=== PATIENT | male | born 1945 | race Caucasian/White ===

== ENCOUNTER 2017-01-16 08:00 | Outpatient (CLI) | payer MEDICARE, OTHER | END 2017-01-16 08:01 | disposition home or self-care (01) | DX: G47.33 Obstructive sleep apnea (adult) (pediatric) (principal); C61 Malignant neoplasm of prostate; I25.10 Atherosclerotic heart disease of native coronary artery without angina pectoris; R74.8 Abnormal levels of other serum enzymes; E78.5 Hyperlipidemia, unspecified; C80.1 Malignant (primary) neoplasm, unspecified; R25.2 Cramp and spasm; Z79.899 Other long term (current) drug therapy ==

== ENCOUNTER 2017-08-24 08:18 | Outpatient (CLI) | payer MEDICARE, OTHER ==
[2017-08-24 09:19] LABS: PSA FREE 0.089 ng/mL (0.16-2.81)
[2017-08-24 09:20] LABS: PSA TOTAL 0.725 ng/mL (0.000-2.000)
== END 2017-08-24 08:19 | disposition home or self-care (01) ==
LOC: LAB 08:18
PROVIDERS: ATTEND Radiology Therapeutic Radiology
DX: C61 Malignant neoplasm of prostate (principal)
CPT/HCPCS: 36415; 84154

== ENCOUNTER 2018-06-02 08:12 | Outpatient (CLI) | payer MEDICARE, OTHER ==
[2018-06-02 08:27] LABS: BASOPHILS % (AUTO) 0.8 %; EOSINOPHILS # (AUTO) 0.2 10^3/uL (0.0-0.7); EOSINOPHILS % (AUTO) 2.8 %; HGB - HEMOGLOBIN 14.7 g/dL (14.0-18.0); LYMPHOCYTES # (AUTO) 1.2 10^3/uL (1.5-3.5); LYMPHOCYTES % (AUTO) 21.3 %; MEAN CORPUSCULAR HEMOGLOBIN 30.4 pg (27.0-31.0); MEAN CORPUSCULAR HGB CONC 34.4 g/dL (32.0-36.0); MEAN CORPUSCULAR VOLUME 88.3 fL (80.0-94.0); MEAN PLATELET VOLUME 8.5 fL (7.4-11.4); MONOCYTES # (AUTO) 0.5 10^3/uL (0.0-1.0); MONOCYTES % (AUTO) 8.6 %; NEUTROPHILS # (AUTO) 3.8 10^3/uL (1.5-6.6); NEUTROPHILS % (AUTO) 66.5 %; PLT - PLATELET COUNT 132 10^3/uL (130-450); RED BLOOD COUNT 4.84 10^6/uL (4.70-6.10); RED CELL DISTRIBUTION WIDTH 13.3 % (12.0-15.0); WHITE BLOOD COUNT 5.7 x10^3/uL (4.8-10.8)
[2018-06-02 08:31] LABS: BILIRUBIN,URINE NEGATIVE (NEGATIVE); GLUCOSE, URINE (UA) NEGATIVE (NEGATIVE); KETONES,URINE (UA) NEGATIVE (NEGATIVE); LEUKOCYTE ESTERASE, URINE NEGATIVE (NEGATIVE); NITRITE,URINE NEGATIVE (NEGATIVE); OCCULT BLOOD,URINE NEGATIVE (NEGATIVE); PROTEIN,URINE 30 mg/dL (NEGATIVE); UROBILINOGEN,URINE 0.2 (NORMAL) E.U./dL (NORMAL)
[2018-06-02 08:43] LABS: MICROALBUM/CREATININE RATIO,UR 253.1 ug/mg (<30.0); MICROALBUMIN,URINE 32.4 mg/dL (0-300.0)
[2018-06-02 08:45] LABS: ALBUMIN 4.6 g/dL (3.2-5.5); ALBUMIN/GLOBULIN RATIO 1.9 (1.0-2.2); ALKALINE PHOSPHATASE 74 IU/L (42-121); ALT ALANINE AMINOTRANSFERASE 74 IU/L (10-60); AST ASPARTATE AMINOTRANSFERASE 57 IU/L (10-42); BUN - BLOOD UREA NITROGEN 16 mg/dL (6-20); CALCIUM 9.2 mg/dL (8.5-10.3); CARBON DIOXIDE - CO2 28 mmol/L (21-32); CHLORIDE 98 mmol/L (101-111); CHOLESTEROL 155 mg/dL; CREATININE 0.8 mg/dL (0.6-1.2); GFR - MDRD 95 (>89); GLUCOSE 182 mg/dL (70-100); HDL CHOLESTEROL 31 mg/dL; LDL CHOLESTEROL,CALCULATED 76 mg/dL; LDL/HDL RATIO 2.5 (<3.6); SODIUM 133 mmol/L (135-145); VLDL CHOLESTEROL 48 mg/dL
[2018-06-02 08:46] LABS: HB2 TOTAL 15.9 g/dL; HEMOGLOBIN A1C 1.02 g/dL
[2018-06-02 09:09] LABS: CLARITY,URINE CLEAR (CLEAR); RBC,URINE 0-5 /HPF (0-5)
[2018-06-02 09:10] LABS: BACTERIA,URINE None Seen /HPF (None Seen); CASTS, URINE 0-2 Hyaline Casts /LPF; SQUAMOUS EPITHELIAL CELL,UR NONE SEEN (<= Few)
== END 2018-06-02 08:13 | disposition home or self-care (01) ==
LOC: LAB 08:12
PROVIDERS: ATTEND Internal Medicine
DX: C61 Malignant neoplasm of prostate (principal); Z79.899 Other long term (current) drug therapy; I10 Essential (primary) hypertension; H91.90 Unspecified hearing loss, unspecified ear; G47.33 Obstructive sleep apnea (adult) (pediatric); I25.10 Atherosclerotic heart disease of native coronary artery without angina pectoris; R74.8 Abnormal levels of other serum enzymes; E78.5 Hyperlipidemia, unspecified; E11.9 Type 2 diabetes mellitus without complications
CPT/HCPCS: 36415; 80053; 80061; 81001; 82043; 82570; 83036; 83721; 84153; 85025; 87086

== ENCOUNTER 2019-01-28 08:33 | Outpatient (CLI) | payer MEDICARE, OTHER | END 2019-01-28 08:34 | disposition home or self-care (01) | LOC: LAB 08:33 | DX: C61 Malignant neoplasm of prostate (principal) | CPT/HCPCS: 36415; 84153 ==

== ENCOUNTER 2019-04-20 07:49 | Outpatient (CLI) | payer MEDICARE, OTHER ==
[2019-04-20 08:28] LABS: BILIRUBIN,URINE NEGATIVE (NEGATIVE); GLUCOSE, URINE (UA) NEGATIVE (NEGATIVE); KETONES,URINE (UA) NEGATIVE (NEGATIVE); LEUKOCYTE ESTERASE, URINE NEGATIVE (NEGATIVE); NITRITE,URINE NEGATIVE (NEGATIVE); OCCULT BLOOD,URINE NEGATIVE (NEGATIVE); PH,URINE 5.5 PH (5.0-7.5); PROTEIN,URINE TRACE mg/dL (NEGATIVE); UROBILINOGEN,URINE 0.2 (NORMAL) E.U./dL (NORMAL)
[2019-04-20 08:31] LABS: CLARITY,URINE CLEAR (CLEAR)
[2019-04-20 08:35] LABS: ALBUMIN 4.5 g/dL (3.2-5.5); ALKALINE PHOSPHATASE 59 IU/L (42-121); ALT ALANINE AMINOTRANSFERASE 62 IU/L (10-60); AST ASPARTATE AMINOTRANSFERASE 44 IU/L (10-42); BILIRUBIN,TOTAL 0.8 mg/dL (0.2-1.0); BUN - BLOOD UREA NITROGEN 18 mg/dL (6-20); CALCIUM 9.1 mg/dL (8.5-10.3); CARBON DIOXIDE - CO2 23 mmol/L (21-32); CHLORIDE 101 mmol/L (101-111); CHOL/HDL RATIO 4.8 (<5.0); CHOLESTEROL 124 mg/dL; CK- CREATINE KINASE 299 IU/L (22-269); CREATININE 0.9 mg/dL (0.6-1.2); GFR - MDRD 83 (>89); GLUCOSE 143 mg/dL (70-100); HDL CHOLESTEROL 26 mg/dL; LDL CHOLESTEROL,CALCULATED 49 mg/dL; LDL/HDL RATIO 1.9 (<3.6); MAGNESIUM 1.8 mg/dL (1.7-2.8); SODIUM 134 mmol/L (135-145); TOTAL PROTEIN 6.8 g/dL (6.7-8.2); VLDL CHOLESTEROL 49 mg/dL
[2019-04-20 08:36] LABS: BASOPHILS % (AUTO) 0.8 %; EOSINOPHILS # (AUTO) 0.2 10^3/uL (0.0-0.7); EOSINOPHILS % (AUTO) 2.9 %; HGB - HEMOGLOBIN 14.8 g/dL (14.0-18.0); LYMPHOCYTES # (AUTO) 1.3 10^3/uL (1.5-3.5); LYMPHOCYTES % (AUTO) 24.8 %; MEAN CORPUSCULAR HGB CONC 33.3 g/dL (32.0-36.0); MEAN CORPUSCULAR VOLUME 90.1 fL (80.0-94.0); MEAN PLATELET VOLUME 11.3 fL (7.4-11.4); MONOCYTES # (AUTO) 0.5 10^3/uL (0.0-1.0); MONOCYTES % (AUTO) 9.2 %; NEUTROPHILS # (AUTO) 3.2 10^3/uL (1.5-6.6); NEUTROPHILS % (AUTO) 61.7 %; PLT - PLATELET COUNT 129 10^3/uL (130-450); RED BLOOD COUNT 4.93 10^6/uL (4.70-6.10); RED CELL DISTRIBUTION WIDTH 13.2 % (12.0-15.0); WHITE BLOOD COUNT 5.2 x10^3/uL (4.8-10.8)
[2019-04-20 08:37] LABS: CREATININE,URINE 108.7 mg/dL; MICROALBUM/CREATININE RATIO,UR 135.2 ug/mg (<30.0); MICROALBUMIN,URINE 14.7 mg/dL (0-300.0)
[2019-04-20 08:40] LABS: HB2 TOTAL 15.6 g/dL; HEMOGLOBIN A1C 0.92 g/dL; HEMOGLOBIN A1C % 7.5 % (4.6-6.2)
[2019-04-20 10:20] LABS: THYROID STIMULATING HORMONE 1.24 uIU/mL (0.34-5.60)
== END 2019-04-20 07:50 | disposition home or self-care (01) ==
LOC: LAB 07:49
PROVIDERS: ATTEND Internal Medicine
DX: I10 Essential (primary) hypertension (principal); I25.10 Atherosclerotic heart disease of native coronary artery without angina pectoris; E11.9 Type 2 diabetes mellitus without complications; E78.3 Hyperchylomicronemia; R74.8 Abnormal levels of other serum enzymes; Z12.11 Encounter for screening for malignant neoplasm of colon; Z12.12 Encounter for screening for malignant neoplasm of rectum; Z79.899 Other long term (current) drug therapy
CPT/HCPCS: 36415; 80053; 80061; 81001; 81003; 82043; 82550; 82570; 82607; 83036; 83721; 83735; 84443; 85025; 87086

== ENCOUNTER 2019-06-17 08:00 | Outpatient (CLI) | payer MEDICARE, OTHER | END 2019-06-17 23:59 | disposition home or self-care (01) | LOC: LAB.R 08:00 | PROVIDERS: ATTEND Internal Medicine | DX: I10 Essential (primary) hypertension (principal); E11.9 Type 2 diabetes mellitus without complications; I25.10 Atherosclerotic heart disease of native coronary artery without angina pectoris; R74.8 Abnormal levels of other serum enzymes; Z79.899 Other long term (current) drug therapy; Z12.11 Encounter for screening for malignant neoplasm of colon; Z12.12 Encounter for screening for malignant neoplasm of rectum | CPT/HCPCS: 82274 ==

== ENCOUNTER 2019-10-31 07:58 | Outpatient (CLI) | payer MEDICARE, OTHER ==
[2019-10-31 08:38] LABS: ALBUMIN 4.4 g/dL (3.2-5.5); ALBUMIN/GLOBULIN RATIO 1.9 (1.0-2.2); ALKALINE PHOSPHATASE 59 IU/L (42-121); ALT ALANINE AMINOTRANSFERASE 62 IU/L (10-60); AST ASPARTATE AMINOTRANSFERASE 55 IU/L (10-42); BUN - BLOOD UREA NITROGEN 17 mg/dL (6-20); CALCIUM 9.1 mg/dL (8.5-10.3); CARBON DIOXIDE - CO2 23 mmol/L (21-32); CHLORIDE 100 mmol/L (101-111); CHOL/HDL RATIO 4.9 (<5.0); CHOLESTEROL 131 mg/dL; CK- CREATINE KINASE 233 IU/L (22-269); CREATININE 0.8 mg/dL (0.6-1.2); GFR - MDRD 95 (>89); GLUCOSE 200 mg/dL (70-100); HDL CHOLESTEROL 27 mg/dL; LDL CHOLESTEROL,CALCULATED 57 mg/dL; LDL/HDL RATIO 2.1 (<3.6); MAGNESIUM 1.9 mg/dL (1.7-2.8); SODIUM 136 mmol/L (135-145); TOTAL PROTEIN 6.7 g/dL (6.7-8.2); VLDL CHOLESTEROL 47 mg/dL
[2019-10-31 08:47] LABS: BASOPHILS # (AUTO) 0.1 10^3/uL (0.0-0.1); BASOPHILS % (AUTO) 0.8 %; EOSINOPHILS # (AUTO) 0.2 10^3/uL (0.0-0.7); EOSINOPHILS % (AUTO) 3.5 %; HGB - HEMOGLOBIN 14.8 g/dL (14.0-18.0); LYMPHOCYTES # (AUTO) 1.1 10^3/uL (1.5-3.5); LYMPHOCYTES % (AUTO) 18.3 %; MEAN CORPUSCULAR HGB CONC 33.1 g/dL (32.0-36.0); MEAN CORPUSCULAR VOLUME 87.6 fL (80.0-94.0); MEAN PLATELET VOLUME 11.3 fL (7.4-11.4); MONOCYTES # (AUTO) 0.6 10^3/uL (0.0-1.0); MONOCYTES % (AUTO) 9.3 %; NEUTROPHILS # (AUTO) 4.2 10^3/uL (1.5-6.6); PLT - PLATELET COUNT 142 10^3/uL (130-450); RED CELL DISTRIBUTION WIDTH 13.1 % (12.0-15.0); WHITE BLOOD COUNT 6.2 x10^3/uL (4.8-10.8)
[2019-10-31 15:10] LABS: HB2 TOTAL 15.8 g/dL; HEMOGLOBIN A1C % 7.9 % (4.6-6.2)
== END 2019-10-31 07:59 | disposition home or self-care (01) ==
LOC: LAB 07:58
PROVIDERS: ATTEND Internal Medicine
DX: Z79.899 Other long term (current) drug therapy (principal); E11.9 Type 2 diabetes mellitus without complications; R41.3 Other amnesia; I10 Essential (primary) hypertension; R42 Dizziness and giddiness; I25.10 Atherosclerotic heart disease of native coronary artery without angina pectoris; H00.019 Hordeolum externum unspecified eye, unspecified eyelid; H10.9 Unspecified conjunctivitis; M54.9 Dorsalgia, unspecified; C80.1 Malignant (primary) neoplasm, unspecified; G47.33 Obstructive sleep apnea (adult) (pediatric); E78.5 Hyperlipidemia, unspecified; R74.8 Abnormal levels of other serum enzymes; R25.2 Cramp and spasm; M25.519 Pain in unspecified shoulder; L03.90 Cellulitis, unspecified; C61 Malignant neoplasm of prostate; R20.2 Paresthesia of skin; H91.90 Unspecified hearing loss, unspecified ear; M25.551 Pain in right hip; R60.9 Edema, unspecified; H10.409 Unspecified chronic conjunctivitis, unspecified eye; R74.0 Nonspecific elevation of levels of transaminase and lactic acid dehydrogenase [LDH]; R97.20 Elevated prostate specific antigen [PSA]; C44.82 Squamous cell carcinoma of overlapping sites of skin
CPT/HCPCS: 36415; 80053; 80061; 82550; 83036; 83721; 83735; 85025

== ENCOUNTER 2020-01-26 08:53 | Outpatient (CLI) | payer MEDICARE, OTHER | END 2020-01-26 08:54 | disposition critical access hospital (66) | LOC: EMS 08:53 | PROVIDERS: ATTEND Surgery | DX: R53.1 Weakness (principal); R11.0 Nausea; R61 Generalized hyperhidrosis; R51 Headache | CPT/HCPCS: A0425; A0427 ==

== ENCOUNTER 2020-01-26 09:25 | Emergency (ER) | payer MEDICARE, OTHER ==
[2020-01-26] MEDS ORDERED: KETOROLAC 30 MG/ML VIAL IVP STA (09:53)
[2020-01-26] MEDS ORDERED: MORPHINE 2 MG/ML CARPUJECT IVP STA (09:53)
[2020-01-26] MEDS ORDERED: DIPHENOX/ATROPINE 2.5/0.025 MG TABLET PO STA (09:54)
[2020-01-26] MEDS ORDERED: IOVERSOL 320 100 ML VIAL IVP ONE ×2 (10:03→12:18)
[2020-01-26 10:29] LABS: BASOPHILS % (AUTO) 0.2 %; EOSINOPHILS % (AUTO) 0.1 %; HGB - HEMOGLOBIN 11.8 g/dL (14.0-18.0); LYMPHOCYTES # (AUTO) 0.5 10^3/uL (1.5-3.5); LYMPHOCYTES % (AUTO) 5.7 %; MEAN CORPUSCULAR HEMOGLOBIN 29.8 pg (27.0-31.0); MEAN CORPUSCULAR VOLUME 90.4 fL (80.0-94.0); MEAN PLATELET VOLUME 10.9 fL (7.4-11.4); MONOCYTES # (AUTO) 0.5 10^3/uL (0.0-1.0); NEUTROPHILS # (AUTO) 8.2 10^3/uL (1.5-6.6); NEUTROPHILS % (AUTO) 88.2 %; PLT - PLATELET COUNT 121 10^3/uL (130-450); RED BLOOD COUNT 3.96 10^6/uL (4.70-6.10); RED CELL DISTRIBUTION WIDTH 13.2 % (12.0-15.0); WHITE BLOOD COUNT 9.3 x10^3/uL (4.8-10.8)
[2020-01-26 10:43] LABS: ALBUMIN 3.7 g/dL (3.2-5.5); ALBUMIN/GLOBULIN RATIO 1.8 (1.0-2.2); BILIRUBIN,TOTAL 0.6 mg/dL (0.2-1.0); CALCIUM 8.7 mg/dL (8.5-10.3); CREATININE 1.1 mg/dL (0.6-1.2); MAGNESIUM 1.8 mg/dL (1.7-2.8); TOTAL PROTEIN 5.8 g/dL (6.7-8.2)
[2020-01-26] MEDS ORDERED: SODIUM CHLORIDE 0.9% 1,000 ML IV ONE ×2 (10:54→12:41)
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
[2020-01-26] MEDS ORDERED: TRANEXAMIC ACID 1,000 MG in SODIUM CHLORIDE 0.9% 100ML 100 ML IV STA (12:24)
[2020-01-26] MEDS ORDERED: ONDANSETRON 4 MG/2 ML VIAL IVP STA (13:14)
[2020-01-26] MEDS ORDERED: HYDROmorphone 1 MG/ML CARPUJECT IVP STA (13:14)
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
[2020-01-26 13:36] VITALS: BP 117/44
== END 2020-01-26 14:07 | disposition short-term general hospital (02) ==
LOC: EDUNIT# → ED 09:25
DX: S36.032A Major laceration of spleen, initial encounter (principal); S22.42XA Multiple fractures of ribs, left side, initial encounter for closed fracture; V29.9XXA Motorcycle rider (driver) (passenger) injured in unspecified traffic accident, initial encounter; Y93.I9 Activity, other involving external motion; I95.89 Other hypotension; E11.9 Type 2 diabetes mellitus without complications; Z79.84 Long term (current) use of oral hypoglycemic drugs
CPT/HCPCS: 36415; 70450; 71260; 72125; 74177; 80053; 83690; 83735; 83880; 84132; 84484; 85025; 86850; 86900; 86901; 93005; 96361; 96365; 96375; 99285; 99291; A9270; J1170; Q9967

== ENCOUNTER 2020-02-01 18:27 | Emergency (ER) | payer MEDICARE, OTHER ==
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
[2020-02-01 20:39] VITALS: BP 167/60
== END 2020-02-01 21:55 | disposition home or self-care (01) ==
LOC: ED 18:27
DX: S36.032D Major laceration of spleen, subsequent encounter (principal); M79.81 Nontraumatic hematoma of soft tissue; E11.9 Type 2 diabetes mellitus without complications; Z79.84 Long term (current) use of oral hypoglycemic drugs
CPT/HCPCS: 99282; 99283

== ENCOUNTER 2020-03-29 11:58 | Outpatient (CLI) | payer MEDICARE, OTHER ==
--- NOTE | 2020-03-29 17:21 | Ultrasound Report ---
PROCEDURE: Testicle INDICATIONS: RT TESTICULAR MASS, INGUINAL MASS TECHNIQUE: Real-time scanning was performed of the scrotum and testicles, with image documentation. Color and p ulse Doppler interrogation was performed of both testicles. COMPARISON: None. FINDINGS: Right: Testicle is normal in size at 1.9 x 2.8 x 3.9 cm, and homogenous in echotexture. Epididymis is normal in overall size and morphology. No hydrocele or varicoceles. Overlying scrotal skin is no rmal in thickness. There is a 6 x 4 x 3 mm epididymal cyst. Note is made of prominent adipose tissue at and adjacent to the inguinal canal. Additionally, there is a heterogeneous irregular predominantl y hypoechoic structure adjacent to the right inguinal canal lateral to the spermatic cord, possibly r epresenting a resolving hematoma. Left: Testicle is normal in size at 3.9 x 2.0 x 2.6 cm, and homogeneous in echotexture. Epididymis is normal in overall size and morphology. No hydrocele or varicoceles. Overlying scrotal skin is no rmal in thickness. There is a 4 x 3 x 3 mm epididymal cyst. Note is made of prominent adipose tissue at and adjacent to the inguinal canal. Doppler: Color and pulse Doppler demonstrate normal and symmetric arterial flow in both testicles. IMPRESSION: No testicular mass lesion is seen bilaterally. Small bilateral simple appearing epididymal cysts are incidentally noted. Adipose tissue is prominent at and adjacent to the inguinal canals bilaterally. N ote is made of a heterogeneous irregular region at the right inguinal canal lateral to the spermatic cord without internal vascularity, conceivably sequela of resolving hematoma from trauma measuring on ly 1.2 x 1.4 x 1.1 cm. Please correlate clinically. Follow-up ultrasound could be performed to confir m resolution of this finding. Reviewed by: Edgar Singer MD on 03/29/2020 5:19 PM PDT Approved by: Edgar Singer MD on 03/29/2020 5:19 PM PDT Station ID: [id number]
== END 2020-03-29 11:59 | disposition home or self-care (01) ==
LOC: DI 11:58
PROVIDERS: ATTEND Surgery
DX: R93.5 Abnormal findings on diagnostic imaging of other abdominal regions, including retroperitoneum (principal)
CPT/HCPCS: 76870

== ENCOUNTER 2020-07-11 09:44 | Outpatient (CLI) | payer MEDICARE, OTHER ==
[2020-07-11 10:18] LABS: CREATININE,URINE 72.6 mg/dL; MICROALBUM/CREATININE RATIO,UR 506.9 ug/mg (<30.0); MICROALBUMIN,URINE 36.8 mg/dL (0-300.0)
[2020-07-11 10:31] LABS: BASOPHILS % (AUTO) 0.6 %; EOSINOPHILS # (AUTO) 0.1 10^3/uL (0.0-0.7); HGB - HEMOGLOBIN 14.1 g/dL (14.0-18.0); LYMPHOCYTES # (AUTO) 1.7 10^3/uL (1.5-3.5); LYMPHOCYTES % (AUTO) 25.2 %; MEAN CORPUSCULAR HGB CONC 32.4 g/dL (32.0-36.0); MEAN CORPUSCULAR VOLUME 89.3 fL (80.0-94.0); MEAN PLATELET VOLUME 11.1 fL (7.4-11.4); MONOCYTES # (AUTO) 0.6 10^3/uL (0.0-1.0); NEUTROPHILS # (AUTO) 4.1 10^3/uL (1.5-6.6); NEUTROPHILS % (AUTO) 62.6 %; PLT - PLATELET COUNT 145 10^3/uL (130-450); RED BLOOD COUNT 4.87 10^6/uL (4.70-6.10); RED CELL DISTRIBUTION WIDTH 14.2 % (12.0-15.0); WHITE BLOOD COUNT 6.6 x10^3/uL (4.8-10.8)
[2020-07-11 10:35] LABS: ALBUMIN 4.6 g/dL (3.2-5.5); ALBUMIN/GLOBULIN RATIO 1.8 (1.0-2.2); ALKALINE PHOSPHATASE 67 IU/L (42-121); ALT ALANINE AMINOTRANSFERASE 53 IU/L (10-60); AST ASPARTATE AMINOTRANSFERASE 41 IU/L (10-42); BILIRUBIN,TOTAL 0.8 mg/dL (0.2-1.0); BUN - BLOOD UREA NITROGEN 20 mg/dL (6-20); CALCIUM 9.7 mg/dL (8.5-10.3); CARBON DIOXIDE - CO2 26 mmol/L (21-32); CHLORIDE 102 mmol/L (101-111); CHOL/HDL RATIO 4.9 (<5.0); CHOLESTEROL 162 mg/dL; CREATININE 0.8 mg/dL (0.6-1.2); GLUCOSE 165 mg/dL (70-100); HDL CHOLESTEROL 33 mg/dL; LDL CHOLESTEROL,CALCULATED 90 mg/dL; LDL/HDL RATIO 2.7 (<3.6); SODIUM 137 mmol/L (135-145); TOTAL PROTEIN 7.1 g/dL (6.7-8.2); VLDL CHOLESTEROL 39 mg/dL
[2020-07-11 12:50] LABS: HEMOGLOBIN A1c% 6.9 % (4.27-6.07)
== END 2020-07-11 09:45 | disposition home or self-care (01) ==
LOC: LAB 09:44
PROVIDERS: ATTEND Internal Medicine
DX: C61 Malignant neoplasm of prostate (principal); Z79.899 Other long term (current) drug therapy; G47.33 Obstructive sleep apnea (adult) (pediatric); I25.10 Atherosclerotic heart disease of native coronary artery without angina pectoris; R74.8 Abnormal levels of other serum enzymes; I10 Essential (primary) hypertension; E11.9 Type 2 diabetes mellitus without complications; C80.1 Malignant (primary) neoplasm, unspecified
CPT/HCPCS: 36415; 80053; 80061; 82043; 82570; 83036; 83721; 84153; 85025

== ENCOUNTER 2020-12-11 08:38 | Outpatient (CLI) | payer MEDICARE, OTHER ==
[2020-12-11 09:14] LABS: ALBUMIN 4.4 g/dL (3.2-5.5); ALBUMIN/GLOBULIN RATIO 1.8 (1.0-2.2); BILIRUBIN,TOTAL 0.5 mg/dL (0.2-1.0); CALCIUM 10.2 mg/dL (8.5-10.3); CREATININE 0.9 mg/dL (0.6-1.2); MAGNESIUM 1.9 mg/dL (1.7-2.8); POTASSIUM 4.7 mmol/L (3.5-5.0); TOTAL PROTEIN 6.8 g/dL (6.7-8.2)
[2020-12-11 12:18] LABS: ESTIMATED AVERAGE GLUCOSE 189 mg/dL (70-100); HEMOGLOBIN A1c% 8.2 % (4.27-6.07)
== END 2020-12-11 08:39 | disposition home or self-care (01) ==
LOC: LAB 08:38
PROVIDERS: ATTEND Internal Medicine
DX: E11.9 Type 2 diabetes mellitus without complications (principal); R25.2 Cramp and spasm; Z79.899 Other long term (current) drug therapy
CPT/HCPCS: 36415; 80053; 83036; 83735

== ENCOUNTER 2021-01-13 19:12 | Emergency (ER) | payer MEDICARE, OTHER ==
[2021-01-13 19:39] LABS: BILIRUBIN,URINE NEGATIVE (NEGATIVE); GLUCOSE, URINE (UA) NEGATIVE (NEGATIVE); KETONES,URINE (UA) TRACE mg/dL (NEGATIVE); LEUKOCYTE ESTERASE, URINE NEGATIVE (NEGATIVE); NITRITE,URINE NEGATIVE (NEGATIVE); OCCULT BLOOD,URINE LARGE (NEGATIVE); PH,URINE 5.5 PH (5.0-7.5); PROTEIN,URINE 100 mg/dL (NEGATIVE); UROBILINOGEN,URINE 0.2 (NORMAL) E.U./dL (NORMAL)
[2021-01-13 19:40] LABS: CLARITY,URINE CLOUDY (CLEAR)
[2021-01-13 19:40] LABS: BASOPHILS % (AUTO) 0.4 %; EOSINOPHILS # (AUTO) 0.1 10^3/uL (0.0-0.7); EOSINOPHILS % (AUTO) 1.5 %; HCT - HEMATOCRIT 46.1 % (42.0-52.0); HGB - HEMOGLOBIN 15.3 g/dL (14.0-18.0); LYMPHOCYTES # (AUTO) 1.6 10^3/uL (1.5-3.5); LYMPHOCYTES % (AUTO) 19.5 %; MEAN CORPUSCULAR HEMOGLOBIN 29.9 pg (27.0-31.0); MEAN CORPUSCULAR HGB CONC 33.2 g/dL (32.0-36.0); MEAN PLATELET VOLUME 10.9 fL (7.4-11.4); MONOCYTES # (AUTO) 0.7 10^3/uL (0.0-1.0); MONOCYTES % (AUTO) 7.9 %; NEUTROPHILS # (AUTO) 5.8 10^3/uL (1.5-6.6); NEUTROPHILS % (AUTO) 70.1 %; PLT - PLATELET COUNT 147 10^3/uL (130-450); RED BLOOD COUNT 5.12 10^6/uL (4.70-6.10); WHITE BLOOD COUNT 8.2 x10^3/uL (4.8-10.8)
[2021-01-13 19:50] LABS: BACTERIA,URINE Few /HPF (None Seen); RBC,URINE TNTC /HPF (0-5); SQUAMOUS EPITHELIAL CELL,UR RARE Squamous (<= Few); WBC,URINE 0-3 /HPF (0-3)
[2021-01-13 19:52] LABS: ALBUMIN 4.7 g/dL (3.2-5.5); ALBUMIN/GLOBULIN RATIO 1.8 (1.0-2.2); BILIRUBIN,TOTAL 0.6 mg/dL (0.2-1.0); CALCIUM 10.1 mg/dL (8.5-10.3); CREATININE 1.1 mg/dL (0.6-1.2); POTASSIUM 4.9 mmol/L (3.5-5.0); TOTAL PROTEIN 7.3 g/dL (6.7-8.2)
[2021-01-13] MEDS ORDERED: SODIUM CHLORIDE 0.9% 1,000 ML IV STA (19:53)
[2021-01-13] MEDS ORDERED: ONDANSETRON 4 MG/2 ML VIAL IVP STA (19:53)
[2021-01-13] MEDS ORDERED: KETOROLAC 30 MG/ML VIAL IVP STA (19:53)
[2021-01-13] MEDS ORDERED: HYDROmorphone 1 MG/ML CARPUJECT IVP STA (19:53)
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
[2021-01-13 21:34] VITALS: BP 174/79
[2021-01-13] MEDS ORDERED: ONDANSETRON ODT 4 MG Prepack 2 TL STA (21:39)
[2021-01-13] MEDS ORDERED: oxyCODONE/ACET 5/325 Prepack 4 PO STA (21:39)
--- NOTE | 2021-01-13 21:50 | CT Report ---
PROCEDURE: Abdomen/Pelvis WO INDICATIONS: L flank pain TECHNIQUE: Noncontrast 5 mm thick sections acquired from the diaphragms to the symphysis. 5 mm coronal and sagi ttal reformats were then performed. For radiation dose reduction, the following was used: automated exposure control, adjustment of mA and/or kV according to patient size. COMPARISON: CT abdomen and pelvis with contrast, 01/26/2020. FINDINGS: Image quality: Excellent. ABDOMEN: Lung bases: Lung bases are clear. Heart size is normal. Moderate to severe coronary artery calcifi cation. Small hiatal hernia. Solid organs: Liver and spleen are normal in size. Gallbladder is normal. Pancreas is normal in co ntours. No adrenal nodules. There is a 6 mm stone at the left UVJ. There is mild left hydronephrosis and hydroureter with mild pe rinephric and periureteral stranding. Kidneys are normal in size. There is cortical calcification in the anterior cortex of the left kidney. Multiple simple appearing cysts are seen in left kidney. Peritoneum and bowel: Unenhanced bowel loops demonstrate normal wall thickness and caliber. There a re numerous colonic diverticula. No CT findings to suggest acute diverticulitis. No free fluid or air . Nodes and vessels: No retroperitoneal or mesenteric adenopathy by size criteria. Aorta and inferior vena cava are normal in caliber. Severe atherosclerosis. Miscellaneous: No ventral hernias. PELVIS: Genitourinary: Bladder wall thickness is normal. Miscellaneous: No inguinal adenopathy. There is a fat-containing right inguinal hernia. Bones: No suspicious bony lesions. No vertebral body compression fractures. Scoliosis and degenera tive disease in lumbar spine. There is right hip arthroplasty. IMPRESSION: 1. A 6 mm obstructive stone in the left distal ureter at the left UVJ. There is mild left hydronephro sis and hydroureter with perinephric and periureteral stranding. 2. Multiple left renal cysts. 3. Diverticulosis without diverticulitis. 4. Severe atherosclerosis. 5. Fat-containing right inguinal hernia. Reviewed by: Pete Johnson MD on 01/13/2021 9:49 PM PDT Approved by: Pete Johnson MD on 01/13/2021 9:49 PM PDT Station ID: [id number]
== END 2021-01-13 22:15 | disposition home or self-care (01) ==
LOC: ED 19:12
DX: N13.2 Hydronephrosis with renal and ureteral calculous obstruction (principal); E11.9 Type 2 diabetes mellitus without complications; Z79.84 Long term (current) use of oral hypoglycemic drugs
CPT/HCPCS: 36415; 74176; 80053; 81001; 83690; 85025; 96361; 96374; 96375; 99284; J1170; 81003; 87086

== ENCOUNTER 2021-01-15 17:01 | Emergency (ER) | payer MEDICARE, OTHER ==
[2021-01-15 17:34] LABS: BASOPHILS % (AUTO) 0.3 %; EOSINOPHILS # (AUTO) 0.1 10^3/uL (0.0-0.7); EOSINOPHILS % (AUTO) 0.5 %; HCT - HEMATOCRIT 42.6 % (42.0-52.0); HGB - HEMOGLOBIN 14.6 g/dL (14.0-18.0); LYMPHOCYTES # (AUTO) 0.8 10^3/uL (1.5-3.5); LYMPHOCYTES % (AUTO) 7.6 %; MEAN CORPUSCULAR HEMOGLOBIN 30.2 pg (27.0-31.0); MEAN CORPUSCULAR HGB CONC 34.3 g/dL (32.0-36.0); MONOCYTES # (AUTO) 0.8 10^3/uL (0.0-1.0); MONOCYTES % (AUTO) 7.3 %; NEUTROPHILS # (AUTO) 9.2 10^3/uL (1.5-6.6); NEUTROPHILS % (AUTO) 83.9 %; PLT - PLATELET COUNT 120 10^3/uL (130-450); RED BLOOD COUNT 4.84 10^6/uL (4.70-6.10); RED CELL DISTRIBUTION WIDTH 12.7 % (12.0-15.0)
[2021-01-15] MEDS ORDERED: SODIUM CHLORIDE 0.9% 1,000 ML IV STA (17:43)
[2021-01-15] MEDS ORDERED: LIDOCAINE-MPF 2% 7.5 ML in SODIUM CHLORIDE 0.9% 50 ML IV STA (17:43)
[2021-01-15] MEDS ORDERED: PROMETHAZINE INJ 25 MG in SODIUM CHLORIDE 0.9% 50 ML IV STA (17:43)
[2021-01-15] MEDS ORDERED: KETOROLAC 30 MG/ML VIAL IVP STA (17:43)
[2021-01-15 17:46] LABS: ALBUMIN 4.4 g/dL (3.2-5.5); ALBUMIN/GLOBULIN RATIO 1.5 (1.0-2.2); BILIRUBIN,TOTAL 1.2 mg/dL (0.2-1.0); CALCIUM 9.5 mg/dL (8.5-10.3); CREATININE 1.6 mg/dL (0.6-1.2); POTASSIUM 5.1 mmol/L (3.5-5.0); TOTAL PROTEIN 7.3 g/dL (6.7-8.2)
[2021-01-15 18:11] LABS: BILIRUBIN,URINE NEGATIVE (NEGATIVE); GLUCOSE, URINE (UA) NEGATIVE (NEGATIVE); KETONES,URINE (UA) NEGATIVE (NEGATIVE); LEUKOCYTE ESTERASE, URINE NEGATIVE (NEGATIVE); NITRITE,URINE NEGATIVE (NEGATIVE); OCCULT BLOOD,URINE SMALL (NEGATIVE); PH,URINE 5.5 PH (5.0-7.5); PROTEIN,URINE 30 mg/dL (NEGATIVE); UROBILINOGEN,URINE 0.2 (NORMAL) E.U./dL (NORMAL)
[2021-01-15 18:12] LABS: CLARITY,URINE CLEAR (CLEAR)
[2021-01-15] MEDS ORDERED: HYDROmorphone 1 MG/ML CARPUJECT IVP STA (18:21)
--- NOTE | 2021-01-15 18:22 | ED Physician Documentation ---
History of Present Illness - Stated complaint Stated Complaint: MALE - Chief complaint Chief Complaint: Abd Pain - History obtained from History obtained from: Patient - History of Present Illness Timing: How many days ago (3) Pain level max: 8 Pain level now: 6 - Additonal information Additional information: 76-year-old male presents to the emergency department with ongoing left flank pain. This started several days ago and he was seen here and diagnosed with a 6 mm left ureteral stone at the UVJ. He states the pain has continued. He is taking one half of a Percocet every 8-12 hours at home. Otherwise he is taking Tylenol for pain. No fevers. No chills. Has had nausea and vomiting. He has an appointment with his urologist tomorrow. His doctor recommended he come back here as he was continuing to have pain today. Patient also states that he has had constipation for the past 4 days. Review of Systems Ten Systems: 10 systems reviewed and negative Constitutional: denies: Fever, Chills Throat: denies: Sore throat Cardiac: denies: Chest pain / pressure GI: reports: Nausea, Vomiting, Constipation. denies: Diarrhea, Hematemesis, Bloody / black stool : denies: Dysuria, Frequency, Hesitancy Skin: denies: Rash Musculoskeletal: denies: Neck pain, Back pain Neurologic: denies: Headache PD PAST MEDICAL HISTORY - Past Medical History Past Medical History: Yes Cardiovascular: Hypertension, High cholesterol, Coronary artery disease Respiratory: None Neuro: None Endocrine/Autoimmune: Type 2 diabetes GI: None : None HEENT: None Psych: Depression Musculoskeletal: None Derm: None - Past Surgical History Past Surgical History: Yes Ortho: Spine surgery Cardiovascular: Coronary stent - Present Medications Home Medications: Ambulatory Orders Medication Instructions Recorded Confirmed Citalopram [CeleXA] 10 mg ORAL DAILY 01/26/20 01/15/21 Lisinopril [Prinivil] 5 mg ORAL DAILY 01/26/20 01/15/21 Metoprolol Tartrate 25 mg ORAL DAILY 01/26/20 01/15/21 metFORMIN [Glucophage] 500 mg ORAL BID 01/26/20 01/15/21 Ondansetron Odt [Zofran] 4 mg TL Q6H PRN #10 tablet 01/13/21 01/15/21 Oxycodone HCl/Acetaminophen 1 - 2 each PO Q6H PRN #14 tablet 01/13/21 01/15/21 [Percocet 5-325 mg Tablet] Tamsulosin [Flomax] 0.4 mg PO DAILY #14 cap 01/13/21 Magnesium Citrate 296 ml PO ONCE PRN #1 01/15/21 polyethylene glycoL 3350 [Miralax] 17 gm PO DAILY PRN #1 bottle 01/15/21 - Allergies Allergies/Adverse Reactions: Allergies Allergy/AdvReac Type Severity Reaction Status Date / Time No Known Drug Allergies Allergy Verified 01/15/21 17:04 - Social History Does the pt smoke?: No Smoking Status: Former smoker Does the pt drink ETOH?: Yes Does the pt have substance abuse?: No - Immunizations Immunizations are current?: Yes PD ED PE NORMAL - Vitals Vital signs reviewed: Yes - General General: Alert and oriented X 3, No acute distress, Well developed/nourished - HEENT HEENT: Moist mucous membranes - Neck Neck: Supple, no meningeal sign - Cardiac Cardiac: RRR - Respiratory Respiratory: No respiratory distress, Clear bilaterally - Abdomen Abdomen: Soft, Non tender, Non distended - Back Back: No CVA TTP, No spinal TTP - Derm Derm: Warm and dry - Extremities Extremities: No edema - Neuro Neuro: Alert and oriented X 3 - Psych Psych: Normal mood, Normal affect Results - Vitals Vitals: Vital Signs - 24 hr 01/15/21 01/15/21 01/15/21 17:05 19:08 19:21 Temperature 36.7 C Heart Rate 72 78 73 Respiratory 18 17 17 Rate Blood Pressure 181/70 H 170/89 H 170/74 H O2 Saturation 98 99 98 Oxygen O2 Source Room air - Labs Labs: Laboratory Tests 01/15/21 01/15/21 01/15/21 17:28 17:28 17:51 WBC 11.0 H RBC 4.84 Hgb 14.6 Hct 42.6 MCV 88.0 MCH 30.2 MCHC 34.3 RDW 12.7 Plt Count 120 L MPV 11.0 Neut # (Auto) 9.2 H Lymph # (Auto) 0.8 L [place] # (Auto) 0.8 Eos # (Auto) 0.1 Baso # (Auto) 0.0 Absolute Nucleated RBC 0.00 Nucleated RBC % 0.0 Sodium 135 Potassium 5.1 H Chloride 101 Carbon Dioxide 24 Anion Gap 10.0 BUN 26 H Creatinine 1.6 H Estimated GFR (MDRD) 42 L Glucose 161 H Calcium 9.5 Total Bilirubin 1.2 H AST 22 ALT 39 Alkaline Phosphatase 60 Total Protein 7.3 Albumin 4.4 Globulin 2.9 Albumin/Globulin Ratio 1.5 Lipase 45 Urine Color YELLOW Urine Clarity CLEAR Urine pH 5.5 Ur Specific [place] 1.015 Urine Protein 30 H Urine Glucose (UA) NEGATIVE Urine Ketones NEGATIVE Urine Occult Blood SMALL H Urine Nitrite NEGATIVE Urine Bilirubin NEGATIVE Urine Urobilinogen 0.2 (NORMAL) Ur Leukocyte Esterase NEGATIVE Urine RBC 0-5 Urine WBC 0-3 Ur Squamous Epith Cells NONE SEEN Urine Bacteria None Seen Ur Microscopic Review INDICATED Urine Culture Comments NOT INDICATED PD MEDICAL DECISION MAKING - ED course Complexity details: reviewed results, re-evaluated patient, considered differential, d/w patient ED course: 76-year-old male with a 6 mm left UVJ stone. He was given IV fluids, Toradol, lidocaine, Dilaudid. Pain well controlled. Tolerating p.o. without difficulty. No evidence of infection. Negative urinalysis for infection. No fevers. Has an appointment with his urologist tomorrow. Recommend that he take his pain medication as prescribed at home and not let his pain become out of control. No indication for repeat CT scan today as the stone is at the left UVJ and if it had moved, it would be in the bladder. Patient counseled regarding signs and symptoms for which I believe and urgent re-evaluation would be necessary. Patient with good understanding of and agreement to plan and is comfortable going home at this time This document was made in part using voice recognition software. While efforts are made to proofread this document, sound alike and grammatical errors may occur. Departure - Departure Disposition: Home, Self Care Clinical Impression: Renal colic on left side Condition: Good Instructions: ED Stone Renal W Colic Follow-Up: Lizz Arias MD [Primary Care Provider] - Prescriptions: Magnesium Citrate 296 ml PO ONCE PRN #1 PRN Reason: Constipation polyethylene glycoL 3350 [Miralax] 17 gm PO DAILY PRN #1 bottle PRN Reason: Constipation Comments: Follow up with your urologist tomorrow. Take Aleve or motrin along with the Percocet. Return if you worsen. Make sure you are staying on top of your pain with your pain medication at home. Discharge Date/Time: 01/15/21 19:47
[2021-01-15 18:23] LABS: BACTERIA,URINE None Seen /HPF (None Seen); RBC,URINE 0-5 /HPF (0-5); SQUAMOUS EPITHELIAL CELL,UR NONE SEEN (<= Few); WBC,URINE 0-3 /HPF (0-3)
[2021-01-15 19:22] VITALS: BP 170/74
== END 2021-01-15 19:47 | disposition home or self-care (01) ==
LOC: ED 17:01
DX: N20.1 Calculus of ureter (principal); I10 Essential (primary) hypertension; E11.9 Type 2 diabetes mellitus without complications; Z79.84 Long term (current) use of oral hypoglycemic drugs; Z87.891 Personal history of nicotine dependence
CPT/HCPCS: 36415; 80053; 81001; 83690; 85025; 96365; 96375; 99284; 99285; J1170; J7040; 81003; 87086

== ENCOUNTER 2021-01-17 12:33 | Emergency (ER) | payer MEDICARE, OTHER ==
[2021-01-17] MEDS ORDERED: KETOROLAC 30 MG/ML VIAL IVP STA (12:57)
[2021-01-17] MEDS ORDERED: HYDROmorphone 1 MG/ML CARPUJECT IVP STA (12:57)
[2021-01-17] MEDS ORDERED: ONDANSETRON 4 MG/2 ML VIAL IVP STA (12:57)
[2021-01-17 13:10] LABS: BASOPHILS % (AUTO) 0.3 %; EOSINOPHILS # (AUTO) 0.1 10^3/uL (0.0-0.7); HCT - HEMATOCRIT 41.6 % (42.0-52.0); HGB - HEMOGLOBIN 13.9 g/dL (14.0-18.0); LYMPHOCYTES # (AUTO) 0.7 10^3/uL (1.5-3.5); LYMPHOCYTES % (AUTO) 7.8 %; MEAN CORPUSCULAR HEMOGLOBIN 29.8 pg (27.0-31.0); MEAN CORPUSCULAR HGB CONC 33.4 g/dL (32.0-36.0); MEAN CORPUSCULAR VOLUME 89.1 fL (80.0-94.0); MEAN PLATELET VOLUME 10.7 fL (7.4-11.4); MONOCYTES # (AUTO) 0.8 10^3/uL (0.0-1.0); MONOCYTES % (AUTO) 8.8 %; NEUTROPHILS # (AUTO) 7.7 10^3/uL (1.5-6.6); NEUTROPHILS % (AUTO) 81.5 %; PLT - PLATELET COUNT 130 10^3/uL (130-450); RED BLOOD COUNT 4.67 10^6/uL (4.70-6.10); WHITE BLOOD COUNT 9.4 x10^3/uL (4.8-10.8)
--- NOTE | 2021-01-17 13:13 | ED Physician Documentation ---
PD HPI ABD PAIN - Stated complaint Stated Complaint: ABD PX - Chief complaint Chief Complaint: Abd Pain - History obtained from History obtained from: Patient - Additional information Additional information: I saw this gentleman 4 days ago, diagnosed with a left sided salute 6 mm UVJ stone. Has persistent pain and has not had a bowel movement since that date. Now has central anterior abdominal pain, persistent severe nausea making it hard to eat. Says he has had some low-grade fevers but T-max was 99.1. Has an appointment to have stone removed tomorrow. Review of Systems Ten Systems: 10 systems reviewed and negative Cardiac: reports: Reviewed and negative Respiratory: reports: Reviewed and negative PD PAST MEDICAL HISTORY - Past Medical History Cardiovascular: Hypertension, High cholesterol, Coronary artery disease Respiratory: None Neuro: None Endocrine/Autoimmune: Type 2 diabetes GI: None : None HEENT: None Psych: Depression Musculoskeletal: None Derm: None - Past Surgical History Past Surgical History: Yes Ortho: Spine surgery Cardiovascular: Coronary stent - Present Medications Home Medications: Ambulatory Orders Medication Instructions Recorded Confirmed Citalopram [CeleXA] 10 mg ORAL DAILY 01/26/20 01/17/21 Lisinopril [Prinivil] 5 mg ORAL DAILY 01/26/20 01/17/21 Metoprolol Tartrate 25 mg ORAL DAILY 01/26/20 01/17/21 metFORMIN [Glucophage] 500 mg ORAL BID 01/26/20 01/17/21 Ondansetron Odt [Zofran] 4 mg TL Q6H PRN #10 tablet 01/13/21 01/17/21 Oxycodone HCl/Acetaminophen 1 - 2 each PO Q6H PRN #14 tablet 01/13/21 01/17/21 [Percocet 5-325 mg Tablet] Tamsulosin [Flomax] 0.4 mg PO DAILY #14 cap 01/13/21 01/17/21 polyethylene glycoL 3350 [Miralax] 17 gm PO DAILY PRN #1 bottle 01/15/21 01/17/21 - Allergies Allergies/Adverse Reactions: Allergies Allergy/AdvReac Type Severity Reaction Status Date / Time No Known Drug Allergies Allergy Verified 01/15/21 17:04 - Social History Does the pt smoke?: No Smoking Status: Former smoker Does the pt drink ETOH?: Yes Does the pt have substance abuse?: No - Immunizations Immunizations are current?: Yes PD ED PE NORMAL - Vitals Vital signs reviewed: Yes - General General: Alert and oriented X 3, No acute distress - HEENT HEENT: PERRL, EOMI - Neck Neck: Supple, no meningeal sign, No bony TTP - Cardiac Cardiac: RRR, No murmur - Respiratory Respiratory: No respiratory distress, Clear bilaterally - Abdomen Abdomen: Other (Distended abdomen, mild diffuse tenderness, normal bowel sounds.) - Rectal Rectal: Other (No fecal impaction within finger's reach, saline enema placed during exam.) - Back Back: No CVA TTP, No spinal TTP - Derm Derm: Normal color, Warm and dry - Extremities Extremities: No edema, No calf tenderness / cord - Neuro Neuro: Alert and oriented X 3, Normal speech Results - Vitals Vitals: Vital Signs - 24 hr 01/17/21 01/17/21 01/17/21 12:46 13:09 15:00 Temperature 36.6 C 36.5 C Heart Rate 86 79 85 Respiratory 18 14 16 Rate Blood Pressure 192/70 H 177/78 H 164/70 H O2 Saturation 98 95 97 Oxygen O2 Source Room air - Labs Labs: Laboratory Tests 01/17/21 01/17/21 13:00 13:00 WBC 9.4 RBC 4.67 L Hgb 13.9 L Hct 41.6 L MCV 89.1 MCH 29.8 MCHC 33.4 RDW 13.0 Plt Count 130 MPV 10.7 Neut # (Auto) 7.7 H Lymph # (Auto) 0.7 L [place] # (Auto) 0.8 Eos # (Auto) 0.1 Baso # (Auto) 0.0 Absolute Nucleated RBC 0.00 Nucleated RBC % 0.0 Sodium 134 L Potassium 5.4 H Chloride 100 L Carbon Dioxide 24 Anion Gap 10.0 BUN 25 H Creatinine 1.5 H Estimated GFR (MDRD) 46 L Glucose 197 H Calcium 9.4 PD MEDICAL DECISION MAKING - ED course ED course: 76-year-old gentleman with known left 6 mm left UVJ stone presents with persistent pain but now more due to cramps and constipation than the flank pain from the stone. Infection hematoma declined. He was seen by both Dr. Has not presents. Subsequent to the CT he started having large-volume diarrhea and was actually feeling much better. Declined offer to transfer to [facility] for pain control pending ureterolith removal tomorrow. Departure - Departure Disposition: 01 Home, Self Care Clinical Impression: Renal colic on left side Abdominal pain Qualifiers: Abdominal location: generalized Qualified Code(s): R10.84 - Generalized abdominal pain Constipation Qualifiers: Constipation type: slow transit constipation Qualified Code(s): K59.01 - Slow transit constipation Condition: Good Record reviewed to determine appropriate education?: Yes Instructions: ED Constipation, ED Stone Renal W Colic Comments: Follow preop instructions for tomorrow, light diet tonight until midnight and then nothing by mouth. Return as needed for intolerable symptoms.
[2021-01-17 13:18] LABS: CALCIUM 9.4 mg/dL (8.5-10.3); CREATININE 1.5 mg/dL (0.6-1.2); POTASSIUM 5.4 mmol/L (3.5-5.0)
[2021-01-17] MEDS ORDERED: SODIUM CHLORIDE 0.9% 1,000 ML IV STA (13:24)
[2021-01-17] MEDS ORDERED: MAGNESIUM CITRATE 296 ML BOTTLE PO STA (14:03)
[2021-01-17] MEDS ORDERED: bisacodyL 5 MG TABLET PO STA (14:03)
--- NOTE | 2021-01-17 14:26 | XRAY Report ---
PROCEDURE: Abdomen 1 View X-Ray INDICATIONS: renal colic f/u TECHNIQUE: 4 views of the abdomen were acquired. COMPARISON: CT abdomen/pelvis 01/13/2021 FINDINGS: Surgical changes and devices: None. Bowel: A prominent air-filled loop of colon is seen in the right abdomen. Evaluation for pneumoperito neum is compromised by supine positioning. Soft tissues: The left distal ureteral calculus seen on prior CT from 01/31/2021 is not definitely re demonstrated. However, findings could be obscured by the presence of phleboliths and atherosclerotic calcifications as well as overlying soft tissue and osseous structures. Visualized solid organ contou rs appear normal in size. Bones: No suspicious bony abnormalities. Degenerative changes are seen in the spine. A right hip ar throplasty is present. IMPRESSION: The previously seen left distal ureteral calculus is not redemonstrated radiographically , which may indicate the stone has passed or is obscured by overlying structures. Reviewed by: Bradley Hussein MD on 01/17/2021 2:25 PM PDT Approved by: Bradley Hussein MD on 01/17/2021 2:25 PM PDT Station ID: [id number]
[2021-01-17] MEDS ORDERED: IOPAMIDOL-300 100 ML VIAL ONE (15:06)
[2021-01-17] MEDS ORDERED: IOPAMIDOL-300 100 ML VIAL IVP ONE (15:32)
--- NOTE | 2021-01-17 16:20 | CT Report ---
PROCEDURE: Abdomen/Pelvis W INDICATIONS: IV only, abd pain CONTRAST: IV CONTRAST: Isovue 300 ml: 100 PO CONTRAST: *NO PO CONTRAST TECHNIQUE: After the administration of intravenous contrast, 5 mm thick sections acquired from the diaphragms to the symphysis. 5 mm thick coronal and sagittal reformats were acquired. For radiation dose reducti on, the following was used: automated exposure control, adjustment of mA and/or kV according to matthew ent size. COMPARISON: CT abdomen/pelvis 01/13/2021 FINDINGS: Image quality: Excellent. ABDOMEN: Lung bases: There is mild dependent atelectasis in the lung bases. Heart size is normal. Coronary ar william atherosclerotic calcifications are seen. Solid organs: The liver is diffusely hypoattenuating, compatible with fatty infiltration. Gallbladder appears normal. Biliary system is non dilated. Pancreas enhances normally. The spleen is mildly e nlarged measuring up to 15 cm in craniocaudal dimension. No adrenal nodules. The multiple kidney is mildly hypoenhancing when compared to the right. Multiple simple appearing cys ts are seen in the left kidney. There is mild left hydronephrosis and left hydroureter with perinephr ic and periureteral fat stranding. A 6 mm calculus is again seen at the left distal ureterovesicular junction, slightly more distal when compared to the CT from 01/13/2021. Peritoneum and bowel: Multiple diverticula are again seen in the colon without signs of acute diverti culitis. Nonspecific fluid-filled loops of small bowel are seen in the central abdomen. No free fluid or air. Nodes and vessels: No retroperitoneal or mesenteric adenopathy by size criteria. Aorta and inferior vena cava are normal in size. Severe aortic atherosclerotic calcifications are again seen. Miscellaneous: No ventral hernias. PELVIS: Genitourinary: Bladder wall thickness is normal. Miscellaneous: There is a moderate fat-containing right inguinal hernia or right spermatic cord lipom a. Bones: No suspicious bony lesions. No vertebral body compression fractures. Mild levoconvex curvat ure of the spine is again seen with associated degenerative changes. A right hip arthroplasty is rede monstrated. Chronic osseous fusion is seen at the L4-5 and L5-S1 levels. IMPRESSION: 1. Left distal ureteral 6 mm calculus at the ureterovesicular junction is redemonstrated, located sl ightly more distal when compared to the CT from 01/13/2021. There is mild to moderate left hydrouretero nephrosis with periureteral and perinephric fat stranding as well as delayed enhancement of the left kidney. 2. Colonic diverticulosis. 3. Diffuse hepatic steatosis. 4. Mild hepatomegaly. Reviewed by: Bradley Hussein MD on 01/17/2021 4:19 PM PDT Approved by: Bradley Hussein MD on 01/17/2021 4:19 PM PDT Station ID: [id number]
[2021-01-17 16:46] VITALS: BP 155/71
== END 2021-01-17 16:46 | disposition home or self-care (01) ==
LOC: ED 12:33
DX: N20.1 Calculus of ureter (principal); K59.00 Constipation, unspecified; I10 Essential (primary) hypertension; E11.9 Type 2 diabetes mellitus without complications; Z79.84 Long term (current) use of oral hypoglycemic drugs; Z87.891 Personal history of nicotine dependence
CPT/HCPCS: 36415; 74018; 74177; 80048; 85025; 96374; 99284; 99285; A9270; J1170; Q9967

== ENCOUNTER 2021-03-01 14:35 | Outpatient (CLI) | payer MEDICARE, OTHER ==
[2021-03-01 15:03] LABS: CALCIUM 9.7 mg/dL (8.5-10.3); CREATININE 0.9 mg/dL (0.6-1.2); POTASSIUM 4.9 mmol/L (3.5-5.0)
[2021-03-01 20:17] LABS: ESTIMATED AVERAGE GLUCOSE 171 mg/dL (70-100); HEMOGLOBIN A1c% 7.6 % (4.27-6.07)
== END 2021-03-01 14:36 | disposition home or self-care (01) ==
LOC: LAB 14:35
PROVIDERS: ATTEND Internal Medicine
DX: E11.9 Type 2 diabetes mellitus without complications (principal); N19 Unspecified kidney failure; Z79.899 Other long term (current) drug therapy
CPT/HCPCS: 36415; 80048; 83036

== ENCOUNTER 2021-04-26 09:50 | Outpatient (CLI) | payer MEDICARE, OTHER | END 2021-04-26 09:51 | disposition E | LOC: EMS 09:50 | DX: I46.9 Cardiac arrest, cause unspecified (principal) | CPT/HCPCS: A0425; A0429 ==